=== PATIENT | male | born 1945 | race Caucasian/White ===

== ENCOUNTER 2016-05-06 13:27 | Inpatient (IN) | payer MEDICARE, BC ==
[2016-05-06] MEDS ORDERED: HOME MEDICATION LIST NEEDED 1 EA EACH MC ONE (13:32)
[2016-05-06] MEDS ORDERED: ALBUTEROL 0.083% 2.5 MG/3 ML VIAL.NEB INHALATION PRN (13:42)
[2016-05-06] MEDS ORDERED: ENOXAPARIN SODIUM 100 MG/ML SYR SQ SCH (14:00)
[2016-05-06] MEDS: ENOXAPARIN SODIUM 60 MG/0.6 ML SYR SUBCUT SCH (15:51)
[2016-05-06 17:16] LABS: INR 1.2
[2016-05-06] MEDS: NORMAL SALINE 1,000 ML IV SCH (18:17)
--- NOTE | 2016-05-06 19:49 | HISTORY & PHYSICAL ---
DATE OF ADMISSION: 05/06/16 ATTENDING PHYSICIAN: Flavio Payton MD CHIEF COMPLAINT: Short of breath with activity. HISTORY OF PRESENT ILLNESS: The patient is a 71-year-old male with a history of pulmonary embolism a few years ago and also a more recent diagnosis of seasonal asthma in association with allergies. He states that he was in his usual state of health until about a month ago when he started to notice some increased swelling in his left lower extremity at the level of his ankle without any pain or redness or warmth. About 2 weeks ago, he noticed increasing dyspnea on exertion even with fairly simply activities such as walking up a gentle hill or a flight of stairs, much more than his baseline. He has not had any fevers or chills. No recent upper respiratory tract symptoms or cough. He denies any hemoptysis. He has not had any chest pain or palpitations. He has had mild tubular orthopnea but no paroxysmal nocturnal dyspnea. As above, he has had some mild lower extremity edema on the left ankle more than the right. In association with his episodes of shortness of breath, he has not had any lightheadedness, nausea, vomiting, diaphoresis or palpitations. He has not had any presyncope or syncope. With regard to his prior history of pulmonary embolism, this was a few years ago , and was in association with prior knee surgery and airplane flight a prolonged car trip with immobilization. With that being said, genetic evaluation at that time showed evidence of heterozygosity for a Factor V Leiden and also for Factor XI mutations. He was anticoagulate with Xarelto for a period of time thereafter but ultimately was seen by Hematology here in the [facility] area and anticoagulation was stopped. In terms of recent risks, he travels frequently, and has had some periods of travel related immobilization, but he did not recall any specific timing with regard to his left leg symptoms or his shortness of breath. He did have surgery on his shoulder in November. No recent lower extremity trauma or surgery. The patient was seen by me in clinic by the above, and admitted to the treatment now of pulmonary embolism. PAST MEDICAL HISTORY 1. Bilateral shoulder pain, status post multiple surgeries for rotator cuff. 2. Basal cell carcinoma involving shoulder, neck and face. 3. Benign positional vertigo in 2015. 4. Asthma with associated bronchitis identified in early 2014 by pulmonary function test. 5. Cataract bilaterally. 6. Elevated CRP of unclear significance. 7. Dry eye bilaterally. 8. Dyslipidemia. 9. Factor V Leiden carrier. 10. Gastroesophageal reflux disease. 11. Hypertension. 12. Hyperglycemia with 1 fasting blood sugar at 133. 13. 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 14. Obesity. 15. History of orchitis and epididymitis in 2013. 16. Posterior vitreous attachment bilateral eyes. 17. History of prostate cancer 2002. 18. Pulmonary embolism as previously described. 19. Seasonal rhinitis. 20. Recurrent sinusitis. 21. Tenosynovitis of the left foot. PAST SURGICAL HISTORY 1. Knee replacement on the left in 2011 and on the right in 2012. 2. Prostatectomy in 2002. 3. Right quadriceps plasty/quadriceps repair in 06/2012. 4. Right rotator cuff surgery in 2007 and on the left side in 2010. 5. Reverse shoulder arthroplasty left shoulder in 12/2015. ALLERGIES: Tylenol which results in lip swelling. MEDICATIONS Lee Ann 180 mg p.o. daily. Amlodipine 10 mg p.o. daily. Aspirin 325 mg p.o. daily. Cephalexin 500 mg p.o. daily. Cialis 5 mg p.o. daily. Magnesium 500 mg p.o. every few days. Pantoprazole 40 mg p.o. daily as needed. Valsartan/Hydrochlorothiazide 160/4.5 mg p.o. daily. SOCIAL HISTORY: Former smoker but quit in 1972. Occasional alcohol use perhaps 2 servings once a week. No illicit drug use. Retired. Previously worked in the [employer] industry with [employer] and [employer] at [facility]. FAMILY HISTORY: Significant for hypertension in his father. Hypothyroidism in his father. Mother with coronary artery disease in her late 70s and at age 90. No family history of clotting diathesis. REVIEW OF SYSTEMS: Pertinent positives and negatives as above. Remainder negative. PHYSICAL EXAMINATION VITAL SIGNS: Temperature of 97.9, blood pressure 136/90, pulse 75, respiratory rate 18. Saturating 93% on room air at rest and 87-89% with ambulation. GENERAL: Obese male. In no acute distress although mildly dyspneic with ambulation. No use of accessory muscles. Talking in full sentences. HEENT: Normocephalic, atraumatic. Sinuses are nontender. Pupils equal, round and reactive to light. Oropharynx is clear. NECK: Supple without lymphadenopathy or masses. CHEST: Decreased breath sounds with mild increase in expiratory phase. No rales. No wheezes. No rhonchi. No change in tactile fremitus. No chest wall tenderness. CARDIAC: Distant. Regular rate and rhythm. Did not hear an S3 or S4. Has no JVD at 90 degrees. Has trace bilateral ankle edema, left greater than right. ABDOMEN: Positive bowel sounds. Soft, nontender, nondistended. No hepatosplenomegaly. BACK: No costovertebral angle tenderness. EXTREMITIES: No cyanosis or clubbing. Calves are nontender. No cords. Negative Homans sign. SKIN: No rashes. LYMPH: No cervical or supraclavicular lymphadenopathy. NEUROLOGIC: Patient alert and oriented x4. Facial expressions are symmetric. Light touch was not tested. He is moving all 4 extremities equally. LABORATORY STUDIES: CBC showing a white blood cell count of 5.7 with hematocrit of 52.6 and platelets of 163 with 76% neutrophils. Basic metabolic panel unremarkable other than glucose elevated at 156. His creatinine is 0.9. Hepatic panel is negative. BNP is 30. Cardiac enzymes including troponin, CPK, CPK-MB are all negative. D-Dimer is elevated at 1,018. EKG: Normal sinus rhythm with a partial right bundle branch block and no acute ischemic changes. IMAGING: Chest x-ray with no evidence of acute process such as infiltrate, pleural effusion, pneumothorax. Ultrasound of the lower extremity edema, negative for deep vein thrombosis. CT angiogram of the chest, positive for multiple bilateral pulmonary emboli with evidence of mild ventricular strain. No saddle embolus. Moderate hiatal hernia. Faint haziness in the mid left upper lobe consistent with possible focal area of pneumonitis/pneumonia. ASSESSMENT AND PLAN 1. Pulmonary embolus, multiple, bilateral, with evidence mild possible right sided strain by CT scan: However, no significant evidence of clinical decompensation and he is hemodynamically stable and saturating well on room air at rest with only mild hypoxemia with ambulation. He does require hospitalization. We discussed hospitalization here versus a larger facility, and he felt comfortable with hospitalization at [facility] and I believe this is reasonable. Echocardiogram has been ordered. Lovenox has been ordered. He is asking about possible transition to Xarelto, and this would be reasonable considering this worked well for him in the past and was well tolerated. Will follow on telemetry. Oxygen as needed. Albuterol as needed. Bathroom privileges with assistance only initially to try to minimize any potential for further clot traveling from lower extremities to his lungs. With that being said, prior ultrasound of his lower extremity edema, which is the more involved side symptomatically, is negative for evidence of current deep vein thrombosis presence. Without fever or productive cough, will hold off on antibiotics at this time. Albuterol as needed. Considering this significant second event, he will likely need lifelong anticoagulation. Anticoagulation will be undertaken in the hospital. 2. Clotting diathesis: As previously documented, patient heterozygous for Factor V Leiden mutation and also Factor XI mutation, and now, second clotting event as above. 3. Asthma, moderate, intermittent: With evidence of mild exacerbation in association with the above. At this time, without more significant airway reactivity, will hold off systemic steroids. No indication for antibiotics. Bronchodilators as needed. Of note, he did have spirometry done in our office as part of his initial workup. This did show evidence of a moderate restrictive pattern which may be worth re-evaluating at some point once he is more stable. Presumably, this is due to decreased compliance in association with his multiple pulmonary emboli. Spirometry did not show evidence of significant change in FEV1/FVC ratio, although he may have some inflammation involving his smaller airways. Follow clinically in this regard. 4. Hypertension: Blood pressure mildly elevated. Will continue on his usual medications and follow closely in the setting of the above. 5. Hypercholesteremia: He does not appear to be on therapy for this, and this can be managed in the outpatient setting. 6. Hyperglycemia: With a history of 1 fasting glucose above 126. His glucose level today was elevated but this was in the nonfasting state and was not above 200. Will follow clinically while in the hospital. 7. History of prostate cancer. History of prostatectomy. Will check PSA most recently done in 10/2015 and was undetectable, but will recheck now. 8. Cancer screening: Prostate cancer issues as above. He had a screening colonoscopy on 04/2014 showing colon polyps but no evidence of cancer. 9. Deep vein thrombosis prophylaxis: Patient will be fully anticoagulated initially with Lovenox as above. 10. Vaccine status: Most recent Tdap was in 11/2011. Received Pneumovax in 2013. Would ultimately be a candidate for Prevnar as well. He did receive a flu vaccine in 01/2016. 11. COR status: Patient is a full COR, full tube. Copies: Artur Hodges MD; Lucius Jules MD [facility]
[2016-05-07] MEDS: NORMAL SALINE 1,000 ML IV SCH ×3 (02:32→18:53)
[2016-05-07] MEDS: ENOXAPARIN SODIUM 60 MG/0.6 ML SYR SUBCUT SCH (02:36)
[2016-05-07 06:00] LABS: BLOOD UREA NITROGEN 11 mg/dL (9-20); CALCIUM 8.9 mg/dL (8.4-10.2); CHLORIDE 106 mmol/L (98-107); CREATININE 0.9 mg/dL (0.7-1.3); EST GLOMERULAR FILTRATION RATE > 60 mL/min; GLUCOSE 135 mg/dL (70-100); POTASSIUM 3.6 mmol/L (3.5-5.1); SODIUM 140 mmol/L (137-145)
[2016-05-07 06:44] LABS: HEMOGLOBIN 14.5 g/dL (14.0-18.0); RED BLOOD COUNT 5.23 X 10^6uL (4.20-6.10); WHITE BLOOD COUNT 4.7 X 10^3uL (3.9-10.7)
[2016-05-07 06:45] LABS: BAND% (Manual) 1 % (0.0-1.0); HEMATOCRIT 46.4 % (42.0-54.0); LYMPHOCYTE % (Manual) 20 % (20.0-40.0); MEAN CORPUS. HGB CONCENTRATION 31.3 g/dL (32.0-36.0); MEAN CORPUSCULAR HEMOGLOBIN 27.8 pg (29.0-35.0); MONOCYTE % (Manual) 4 % (2.0-10.0); NEUTROPHIL % (Manual) 50 % (54.0-75.0); PLATELET COUNT 114 X 10^3uL (130-440)
[2016-05-07 06:46] LABS: EOSINOPHIL % (Manual) 9 % (0.0-6.0); PLATELET ESTIMATE ADEQUATE
[2016-05-07 06:48] LABS: PSA DIAGNOSTIC < 0.06 ng/mL (<4.00)
[2016-05-07] MEDS: amLODIPine BESYLATE 5 MG TABLET PO SCH (08:54)
--- NOTE | 2016-05-07 08:54 | PROGRESS NOTE: IM APSO ---
Assessment and Plan - Date of Encounter Date of Encounter: 05/07/16 (1) Recurrent pulmonary embolism Status: Acute Assessment and plan: likely multifactorial with genetics and chronic inflammation, reviewed Virchows triad and negative PSA w/ h/o prostate cancer. Cscope 2015 w/ polyps but no cancer. Resume Xarelto, stop lovenox, assess for need of oxygen Current Visit: Yes (2) Elevated C-reactive protein (CRP) Status: Chronic Assessment and plan: really to likely chronic infection, resume Kefles (suppressive not reordered on admit) Current Visit: Yes (3) Infected prosthetic knee joint Status: Chronic Current Visit: Yes (4) Hypertension Status: Chronic Current Visit: Yes (5) Impaired glucose metabolism Status: Chronic Current Visit: Yes (6) Obstructive lung disease Status: Chronic Current Visit: Yes - Time Spent With Patient Total time spent with greater than 50% in coordination of care (as documented) at patient's floor/unit and/or counseling patient: Greater than 35 minutes IM: PN Subjective General: pain (headache), no fever, no chills Cardiovascular: no chest pain, no chest pressure, no palpitations, no dizziness Respiratory: SOB (with exertion and notes pulse ox dips to 85% with minimal exertion), other (Prior PE's with travel, has factor 11 and heterozygous for factor v leiden. travel to [place] in Fall then shoulder surgery and noted gradually increasing cyspnea after this but last week or so swelling and worsening dyspnea. CT with multiple PE's and Echo without right heart strain. Reviewed riska nd recommend indefinite AC as well likely to need oxygen short term. He wishes second opinion with [facility] which seems reasonable. Load withXarelto and if needs O2 tomorrow then arrange home O2), no cough Gastrointestinal: no abdominal pain, no bloating, no nausea, no vomiting, no constipation Musculoskeletal: swelling (left ankle) IM: PN Objective Exam - I&O/Vital Signs I&O: Intake & Output 05/06/16 05/07/16 05/07/16 21:59 05:59 13:59 Intake Total 1464 Output Total 700 Balance 764 Weight 113.398 kg Intake: IV 1024 Left Hand 1024 Oral 440 Output: Urine 700 Other: Urine Appearance Clear Clear Urine Color Yellow Yellow Stool Size Small Stool Characteristics Soft Formed Formed Brown Brown Voiding Method Toilet Toilet # Voids 2 # Bowel Movements 1 Vital Signs: Last Vital Signs Temp 36.4 C 05/07/16 06:20 Pulse 64 05/07/16 06:20 Resp 16 05/07/16 06:20 BP 131/84 05/07/16 06:20 Pulse Ox 95 05/07/16 06:20 Oxygen Flow Rate 2 Oxygen Delivery Method Nasal Cannula - Constitutional General appearance: Present: obese - Head Head exam: Present: atraumatic - ENT ENT exam: Present: mucous membranes moist - Neck Neck exam: Present: full ROM. Absent: lymphadenopathy, thyromegaly - Respiratory Respiratory exam: Present: CTAB. Absent: accessory muscle use - Cardiovascular Cardiovascular exam: Present: RRR - GI/Abdominal GI/Abdominal exam: Present: normal bowel sounds, soft. Absent: tenderness - Rectal Rectal exam: Present: deferred - Extremities Exam Extremities exam: Present: edema (left trace at ankle). Absent: calf tenderness - Allied Health Notes Allied health notes reviewed: nursing - Lab Labs: Laboratory Last Values WBC 4.7 X 10^3uL (3.9-10.7) 05/07/16 05:25 RBC 5.23 X 10^6uL (4.20-6.10) 05/07/16 05:25 Hgb 14.5 g/dL (14.0-18.0) 05/07/16 05:25 Hct 46.4 % (42.0-54.0) 05/07/16 05:25 MCV 89.0 fL (80.0-100.0) D 05/07/16 05:25 MCH 27.8 pg (29.0-35.0) L 05/07/16 05:25 MCHC 31.3 g/dL (32.0-36.0) L 05/07/16 05:25 RDW Not Reportable 05/07/16 05:25 Plt Count 114 X 10^3uL (130-440) L 05/07/16 05:25 MPV Not Reportable 05/07/16 05:25 Total Counted 100 05/07/16 05:25 Neutrophils % Cancelled 05/07/16 05:25 Neutrophils % (Manual) 50 % (54.0-75.0) L 05/07/16 05:25 Band Neuts % (Manual) 1 % (0.0-1.0) 05/07/16 05:25 Lymphocytes % Cancelled 05/07/16 05:25 Lymphocytes % (Manual) 20 % (20.0-40.0) 05/07/16 05:25 Atypical Lymphs % (Man) 16 % 05/07/16 05:25 Monocytes % (Manual) 4 % (2.0-10.0) 05/07/16 05:25 Eosinophils % Cancelled 05/07/16 05:25 Eosinophils % (Manual) 9 % (0.0-6.0) H 05/07/16 05:25 Basophils % Cancelled 05/07/16 05:25 Neutrophils # Cancelled 05/07/16 05:25 Lymphocytes # Cancelled 05/07/16 05:25 Monocytes Cancelled 05/07/16 05:25 Monocytes # Cancelled 05/07/16 05:25 Eosinophils # Cancelled 05/07/16 05:25 Basophils # Cancelled 05/07/16 05:25 Platelet Estimate Adequate 05/07/16 05:25 Poikilocytosis 10-19% of cells 05/07/16 05:25 Microcytosis 10-19% of cells 05/07/16 05:25 PT 15.7 sec (13.0-16.6) 05/06/16 11:07 INR 1.2 05/06/16 11:07 PTT 29 sec (24-38) 05/06/16 11:07 Sodium 140 mmol/L (137-145) 05/07/16 05:25 Potassium 3.6 mmol/L (3.5-5.1) 05/07/16 05:25 Chloride 106 mmol/L (98-107) 05/07/16 05:25 Carbon Dioxide 25 mmol/L (22-30) 05/07/16 05:25 BUN 11 mg/dL (9-20) 05/07/16 05:25 Creatinine 0.9 mg/dL (0.7-1.3) 05/07/16 05:25 GFR Calculation > 60 mL/min 05/07/16 05:25 Glucose 135 mg/dL (70-100) H 05/07/16 05:25 Calcium 8.9 mg/dL (8.4-10.2) 05/07/16 05:25 Total PSA < 0.06 ng/mL (<4.00) 05/07/16 05:25 Quality Questions - VTE Prophylaxis Assessment VTE Present on Admission?: Yes Patient at risk for venous thromboembolism?: Yes VTE Risk Level: High Risk VTE Medical Contraindication: Treatment not indicated (3) Infected prosthetic knee joint Qualifiers: Encounter type: sequela Qualified Code(s): T84.59XS - Infection and inflammatory reaction due to other internal joint prosthesis, sequela; Z96.659 - Presence of unspecified artificial knee joint
[2016-05-07] MEDS: HYDROCHLOROTHIAZIDE 25 MG TABLET PO SCH (08:55)
[2016-05-07] MEDS: FEXOFENADINE HCL 180 MG TABLET PO SCH (08:56)
[2016-05-07] MEDS: VALSARTAN 80 MG TABLET PO SCH (08:57)
[2016-05-07] MEDS ORDERED: NON-FORMULARY MEDICATION (Tadalafil [Cialis] 5 MG) PO SCH ×2 (09:00)
[2016-05-07] MEDS ORDERED: VALSARTAN PO SCH (09:00)
[2016-05-07] MEDS ORDERED: NON-FORMULARY MEDICATION (Amlodipine Besylate [Norvasc] 10 MG) PO SCH (09:00)
[2016-05-07] MEDS ORDERED: HYDROCHLOROTHIAZIDE PO SCH (09:00)
[2016-05-07] MEDS ORDERED: CEPHALEXIN MONOHYDRATE 250 MG CAPSULE PO SCH ×2 (09:00→21:00)
[2016-05-07] MEDS ORDERED: [UNRECOGNIZED DRUG - OTHER] PO SCH (09:00)
[2016-05-07] MEDS ORDERED: CEPHALEXIN 500 MG PO SCH (09:00)
[2016-05-07] MEDS: PROBIOTIC 1 CAP CAPSULE PO SCH (10:21)
[2016-05-07] MEDS: RIVAROXABAN 10 MG TABLET PO SCH (18:11)
[2016-05-07] MEDS ORDERED: traMADol HCL 50 MG TABLET PO PRN (18:47)
[2016-05-07] MEDS ORDERED: VALSARTAN 80 MG TABLET PO ONE (20:50)
[2016-05-08] MEDS: NORMAL SALINE 1,000 ML IV SCH (04:22)
[2016-05-08 05:38] LABS: BASOPHIL# 0.2 X 10^3uL (0.0-0.1); BASOPHILS 4.5 % (0.0-2.0); EOSINOPHILS 6.3 % (0.0-6.0); EOSINOPHILS# 0.3 X 10^3uL (0.0-0.4); HEMATOCRIT 49.6 % (42.0-54.0); HEMOGLOBIN 16.5 g/dL (14.0-18.0); LYMPHOCYTES 16.9 % (20.0-40.0); LYMPHOCYTES# 0.8 X 10^3uL (0.8-3.8); MEAN CELL VOLUME 82.4 fL (80.0-100.0); MEAN CORPUS. HGB CONCENTRATION 33.3 g/dL (32.0-36.0); MEAN CORPUSCULAR HEMOGLOBIN 27.4 pg (29.0-35.0); MEAN PLATELET VOLUME 8.4 fL (7.4-10.4); MONOCYTES 12.6 % (2.0-10.0); MONOCYTES# 0.6 X 10^3uL (0.2-1.0); NEUTROPHILS 59.7 % (54.0-75.0); RED BLOOD COUNT 6.02 X 10^6uL (4.20-6.10); WHITE BLOOD COUNT 4.9 X 10^3uL (3.9-10.7)
[2016-05-08] MEDS ORDERED: SODIUM CHLORIDE NASAL SPRAY 44 SPRAY/44 ML BTL NASAL PRN (05:43)
[2016-05-08 06:21] VITALS: BP 143/88; PULSE 71; RESP 15; TEMP 97.5; O2SAT 91
[2016-05-08] MEDS: RIVAROXABAN 10 MG TABLET PO SCH (08:12)
[2016-05-08] MEDS: FEXOFENADINE HCL 180 MG TABLET PO SCH (08:12)
[2016-05-08] MEDS: HYDROCHLOROTHIAZIDE 25 MG TABLET PO SCH (08:13)
[2016-05-08] MEDS: PROBIOTIC 1 CAP CAPSULE PO SCH (08:13)
[2016-05-08] MEDS: VALSARTAN 80 MG TABLET PO SCH (08:13)
[2016-05-08] MEDS: amLODIPine BESYLATE 5 MG TABLET PO SCH (08:13)
--- NOTE | 2016-05-08 08:39 | PROGRESS NOTE: IM APSO ---
Assessment and Plan - Date of Encounter Date of Encounter: 05/08/16 (1) Recurrent pulmonary embolism Status: Acute Assessment and plan: likely multifactorial with genetics and chronic inflammation, reviewed Virchows triad and negative PSA w/ h/o prostate cancer. Cscope 2015 w/ polyps but no cancer. Resumed Xarelto, stopped lovenox, assess for need of oxygen (doesn't need) Current Visit: Yes (2) Elevated C-reactive protein (CRP) Status: Chronic Assessment and plan: likely related to chronic infection, resumed supressive Keflex Current Visit: Yes (3) Infected prosthetic knee joint Status: Chronic Current Visit: Yes (4) Hypertension Status: Chronic Assessment and plan: controlled at home on valsartan/norvasc/hctz, may need to titrate but will check BP at home in mornings and address at f/u. Current Visit: Yes (5) Impaired glucose metabolism Status: Chronic Current Visit: Yes (6) Obstructive lung disease Status: Chronic Current Visit: Yes - Time Spent With Patient Total time spent with greater than 50% in coordination of care (as documented) at patient's floor/unit and/or counseling patient: 25 - 35 minutes IM: PN Subjective General: no pain, no fever, no chills Cardiovascular: no chest pain, no chest pressure, no palpitations, no dizziness Respiratory: SOB (notes pulse ox dips to 86% with more vigorous exertion), no cough Gastrointestinal: no abdominal pain, no bloating, no nausea, no vomiting, no constipation Musculoskeletal: swelling (left ankle) IM: PN Objective Exam - I&O/Vital Signs I&O: Intake & Output 05/07/16 05/08/16 05/08/16 21:59 05:59 13:59 Intake Total 2900 3732 Output Total 2800 2300 Balance 100 1432 Intake: IV 1400 2692 Left Hand 1400 2692 Oral 1500 1040 Output: Urine 2800 2300 Other: Urine Appearance Clear Clear Urine Color Yellow Yellow Stool Size Small Stool Characteristics Formed Brown Voiding Method Toilet Toilet # Voids 7 # Bowel Movements 2 0 Vital Signs: Last Vital Signs Temp 36.4 C L 05/08/16 06:20 Pulse 71 05/08/16 06:20 Resp 15 05/08/16 06:20 BP 143/88 05/08/16 06:20 Pulse Ox 91 05/08/16 06:20 Oxygen Flow Rate 1 Oxygen Delivery Method Room Air - Constitutional General appearance: Present: obese - Head Head exam: Present: atraumatic - ENT ENT exam: Present: mucous membranes moist - Neck Neck exam: Present: full ROM. Absent: lymphadenopathy, thyromegaly - Respiratory Respiratory exam: Present: CTAB. Absent: accessory muscle use - Cardiovascular Cardiovascular exam: Present: RRR - GI/Abdominal GI/Abdominal exam: Present: normal bowel sounds, soft. Absent: tenderness - Rectal Rectal exam: Present: deferred - Extremities Exam Extremities exam: Absent: calf tenderness - Allied Health Notes Allied health notes reviewed: nursing - Lab Labs: Laboratory Last Values WBC 4.9 X 10^3uL (3.9-10.7) 05/08/16 05:25 RBC 6.02 X 10^6uL (4.20-6.10) 05/08/16 05:25 Hgb 16.5 g/dL (14.0-18.0) 05/08/16 05:25 Hct 49.6 % (42.0-54.0) 05/08/16 05:25 MCV 82.4 fL (80.0-100.0) D 05/08/16 05:25 MCH 27.4 pg (29.0-35.0) L 05/08/16 05:25 MCHC 33.3 g/dL (32.0-36.0) 05/08/16 05:25 RDW 14.0 % (11.5-14.5) 05/08/16 05:25 Plt Count 165 X 10^3uL (130-440) 05/08/16 05:25 MPV 8.4 fL (7.4-10.4) 05/08/16 05:25 Total Counted 100 05/07/16 05:25 Neutrophils % 59.7 % (54.0-75.0) 05/08/16 05:25 Neutrophils % (Manual) 50 % (54.0-75.0) L 05/07/16 05:25 Band Neuts % (Manual) 1 % (0.0-1.0) 05/07/16 05:25 Lymphocytes % 16.9 % (20.0-40.0) L 05/08/16 05:25 Lymphocytes % (Manual) 20 % (20.0-40.0) 05/07/16 05:25 Atypical Lymphs % (Man) 16 % 05/07/16 05:25 Monocytes % (Manual) 4 % (2.0-10.0) 05/07/16 05:25 Eosinophils % 6.3 % (0.0-6.0) H 05/08/16 05:25 Eosinophils % (Manual) 9 % (0.0-6.0) H 05/07/16 05:25 Basophils % 4.5 % (0.0-2.0) H 05/08/16 05:25 Neutrophils # 3.0 X 10^3uL (2.6-6.7) 05/08/16 05:25 Lymphocytes # 0.8 X 10^3uL (0.8-3.8) 05/08/16 05:25 Monocytes 12.6 % (2.0-10.0) H 05/08/16 05:25 Monocytes # 0.6 X 10^3uL (0.2-1.0) 05/08/16 05:25 Eosinophils # 0.3 X 10^3uL (0.0-0.4) 05/08/16 05:25 Basophils # 0.2 X 10^3uL (0.0-0.1) H 05/08/16 05:25 Platelet Estimate Adequate 05/07/16 05:25 Poikilocytosis 10-19% of cells 05/07/16 05:25 Microcytosis 10-19% of cells 05/07/16 05:25 PT 15.7 sec (13.0-16.6) 05/06/16 11:07 INR 1.2 05/06/16 11:07 PTT 29 sec (24-38) 05/06/16 11:07 Sodium 140 mmol/L (137-145) 05/07/16 05:25 Potassium 3.6 mmol/L (3.5-5.1) 05/07/16 05:25 Chloride 106 mmol/L (98-107) 05/07/16 05:25 Carbon Dioxide 25 mmol/L (22-30) 05/07/16 05:25 BUN 11 mg/dL (9-20) 05/07/16 05:25 Creatinine 0.9 mg/dL (0.7-1.3) 05/07/16 05:25 GFR Calculation > 60 mL/min 05/07/16 05:25 Glucose 135 mg/dL (70-100) H 05/07/16 05:25 Calcium 8.9 mg/dL (8.4-10.2) 05/07/16 05:25 Total PSA < 0.06 ng/mL (<4.00) 05/07/16 05:25 (3) Infected prosthetic knee joint Qualifiers: Encounter type: sequela Qualified Code(s): T84.59XS - Infection and inflammatory reaction due to other internal joint prosthesis, sequela; Z96.659 - Presence of unspecified artificial knee joint
--- NOTE | 2016-05-08 08:45 | DC SUMMARY: IM Note ---
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 Qualifiers: Encounter type: sequela Qualified Code(s): T84.59XS - Infection and inflammatory reaction due to other internal joint prosthesis, sequela; Z96.659 - Presence of unspecified artificial knee joint (4) Hypertension Status: Chronic (5) Impaired glucose metabolism Status: Chronic (6) Obstructive lung disease Status: Chronic - Time Spent with Patient Total time spent providing and/or coordinating discharge services: Discharge - Patient/Caregiver Discharge Instructions Activity Level: as tolerated, avoid high risk activities for head injury Diet: cardiac prudent Follow up: XI NEGRO MD [Primary Care Provider] - 7 Days Overall discharge status: patient is progressing back to baseline Home Medications: aspirin EC [Aspirin EC*] 81 mg PO DAILY #100 tablet traMADol HCL [Ultram*] 50 mg PO Q6H PRN #30 tablet PRN Reason: Pain, Moderate Able To Take Po Disposition: HOME, SELF-CARE Discharge Summary Data - Medication History Medication History: Home Medications Cephalexin [Keflex] 500 mg PO DAILY 05/06/16 Fexofenadine HCl [[place] Allergy] 180 mg PO DAILY 05/06/16 Tadalafil [Cialis] 5 mg PO DAILY 05/06/16 Valsartan/Hydrochlorothiazide [Diovan Hct 160-12.5 mg Tab] 1 tab PO DAILY amLODIPine BESYLATE [Norvasc] 10 mg PO DAILY 05/06/16 aspirin EC [Aspirin EC*] 325 mg PO DAILY 05/06/16 Inpatient Medications 05/06/16 13:42 Albuterol 0.083% [Ventolin 0.083% Neb Soln] 2.5 mg INHALATION QIDINH PRN 05/06/16 14:00 Normal Saline [Sodium Chloride 0.9% 1000 ml] 1,000 ml IV CONT 05/07/16 09:00 Fexofenadine HCl [Lee Ann] 180 mg PO DAILY Hydrochlorothiazide [Hydrodiuril] 12.5 mg PO DAILY Probiotic [Erin-Q Capsule] 1 cap PO DAILY Tadalafil [Cialis] 5 mg PO DAILY Valsartan [Diovan] 160 mg PO DAILY amLODIPine BESYLATE [Norvasc] 10 mg PO DAILY 05/07/16 18:00 Rivaroxaban [Xarelto] 15 mg PO WITH BRKFST AND DINN 05/07/16 18:47 traMADol HCL [Ultram] 50 mg PO Q6H PRN 05/08/16 05:43 Sodium Chloride Nasal [place] [Scurry Nasal [place]] 0 spray NASAL Q1H PRN 05/08/16 09:00 Cephalexin Monohydrate [Keflex] 500 mg PO DAILY Procedures and tests throughout hospitalization: Completed Lab Orders 05/06/16 11:07 PARTIAL THROMBOPLASTIN TIME [HEM] Routine PROTIME/INR [HEM] Routine 05/07/16 05:25 BASIC METABOLIC PANEL [CHEM] AMDRAW CBC W/ MANUAL DIFFERENTIAL [HEM] Stat PSA DIAGNOSTIC [CHEM] Routine 05/08/16 05:25 CBC AUTO DIF, MDIF/RMOR IF IND [HEM] AMDRAW Completed Microbiology Orders 05/06/16 21:30 OCCULT BLOOD (1-3 SAMPLES) [RM] 05/07/16 08:00 OCCULT BLOOD (1-3 SAMPLES) [RM] 05/07/16 12:20 OCCULT BLOOD (1-3 SAMPLES) [RM] Pending Orders 05/06/16 13:32 Admit: Inpatient Routine Activity: BRP w/ Assist Only . Assess pulse oximetry ROOM AIR (DAILY) Resuscitation Status Routine Teach: Lovenox Education . Telemetry monitoring CONTINUOUS TELE Vital Signs ROUTINE VITALS (Q4H) Echocardiogram [CARDIO] Routine 05/06/16 13:42 Albuterol 0.083% [Ventolin 0.083% Neb Soln] 2.5 mg INHALATION QIDINH PRN 05/06/16 14:00 Normal Saline [Sodium Chloride 0.9% 1000 ml] 1,000 ml IV CONT 05/06/16 Lunch Regular [DIET] 05/07/16 09:00 Fexofenadine HCl [Lee Ann] 180 mg PO DAILY Hydrochlorothiazide [Hydrodiuril] 12.5 mg PO DAILY Probiotic [Erin-Q Capsule] 1 cap PO DAILY Tadalafil [Cialis] 5 mg PO DAILY Valsartan [Diovan] 160 mg PO DAILY amLODIPine BESYLATE [Norvasc] 10 mg PO DAILY 05/07/16 09:03 Pulse-ox [Assess pulse oximetry] Once 05/07/16 18:00 Rivaroxaban [Xarelto] 15 mg PO WITH BRKFST AND DINN 05/07/16 18:47 traMADol HCL [Ultram] 50 mg PO Q6H PRN 05/08/16 05:43 Sodium Chloride Nasal [place] [Scurry Nasal [place]] 0 spray NASAL Q1H PRN 05/08/16 09:00 Cephalexin Monohydrate [Keflex] 500 mg PO DAILY Labs on day of discharge: Labs from last 24 hours 05/08/16 05:25 WBC 4.9 RBC 6.02 Hgb 16.5 Hct 49.6 MCV 82.4 D MCH 27.4 L MCHC 33.3 RDW 14.0 Plt Count 165 MPV 8.4 Neutrophils % 59.7 Lymphocytes % 16.9 L Eosinophils % 6.3 H Basophils % 4.5 H Neutrophils # 3.0 Lymphocytes # 0.8 Monocytes 12.6 H Monocytes # 0.6 Eosinophils # 0.3 Basophils # 0.2 H - Impressions 71 yo man with HTN/IGT/chronic infection with elevated CRP, FVL and now recurrent PE. Not require O2. Echo without pulm HTN, CT chest multiple PE. Resumed Xarelto. Heme consult sent. Will need f/u in 1-2 weeks and readdress oxygen/BP at that time. IM: Discharge Physical Exam - I&O/Vital Signs I&O: Intake & Output 05/07/16 05/08/16 05/08/16 21:59 05:59 13:59 Intake Total 2900 3732 Output Total 2800 2300 Balance 100 1432 Intake: IV 1400 2692 Left Hand 1400 2692 Oral 1500 1040 Output: Urine 2800 2300 Other: Urine Appearance Clear Clear Urine Color Yellow Yellow Stool Size Small Stool Characteristics Formed Brown Voiding Method Toilet Toilet # Voids 7 # Bowel Movements 2 0 Vital Signs: Last Vital Signs Temp 36.4 C L 05/08/16 06:20 Pulse 71 05/08/16 06:20 Resp 15 05/08/16 06:20 BP 143/88 05/08/16 06:20 Pulse Ox 91 05/08/16 06:20 Oxygen Flow Rate 1 Oxygen Delivery Method Room Air - Constitutional General appearance: Present: obese - Head Head exam: Present: atraumatic - ENT ENT exam: Present: mucous membranes moist - Neck Neck exam: Present: full ROM. Absent: lymphadenopathy, thyromegaly - Respiratory Respiratory exam: Present: CTAB. Absent: accessory muscle use - Cardiovascular Cardiovascular exam: Present: RRR - GI/Abdominal GI/Abdominal exam: Present: normal bowel sounds, soft. Absent: tenderness - Rectal Rectal exam: Present: deferred - Extremities Exam Extremities exam: Absent: calf tenderness - Allied Health Notes Allied health notes reviewed: nursing
[2016-05-08] MEDS ORDERED: CEPHALEXIN MONOHYDRATE 250 MG CAPSULE PO SCH (09:00)
== END 2016-05-08 08:45 | disposition home or self-care (01) | DRG 176 ==
LOC: IN 13:27
PROVIDERS: ADMIT Internal Medicine; ATTEND Internal Medicine
DX: I26.99 Other pulmonary embolism without acute cor pulmonale (principal); D68.4 Acquired coagulation factor deficiency; J45.21 Mild intermittent asthma with (acute) exacerbation; Z86.711 Personal history of pulmonary embolism; R09.02 Hypoxemia; E78.5 Hyperlipidemia, unspecified; K21.9 Gastro-esophageal reflux disease without esophagitis; I10 Essential (primary) hypertension; E66.9 Obesity, unspecified; Z85.46 Personal history of malignant neoplasm of prostate; R73.9 Hyperglycemia, unspecified; Z87.898 Personal history of other specified conditions; R79.82 Elevated C-reactive protein (CRP); Z79.899 Other long term (current) drug therapy
CPT/HCPCS: 36415; 80048; 82270; 84153; 85007; 85025; 85027; 85610; 85730; 93005; 93041; 93306; 94667; J1650; J7030

== ENCOUNTER 2016-05-31 09:26 | Emergency (ER) | payer MEDICARE, BC ==
--- NOTE | 2016-05-31 10:26 | ER PHYSICIAN DOCUMENTATION ---
Physician Documentation [facility] Name:Ronald Blackwood Age:71 yrs Sex:Male :1945 Arrival Date:05/31/2016 Time:09:26 Bed4 Private MD:Artur Hodges ED, Tom Disposition: 05/31 10:00 Chart complete. tl1 Disposition: 05/31/16 10:10 Discharged to Home/Self Care. Impression: Phlebitis Leg. - Condition is Good. - Medical Reconciliation form form. - Follow up: Artur Hodges MD; When: 1 - 2 days; Reason: Recheck today's complaints, Continuance of care. - Problem is new. - Symptoms have improved. HPI: 09:39 This 71 yrs old Male presents to ER with complaints of R CALF PAIN. tl1 09:40 He is currently on Xarelto for a prior PE. This AM, on awakening, he noted right tl1 proximal posterolateral calf pain with walking. He cannot think of any injury or unusually strenuous exercise.. He denies CP, hemoptysis or dyspnea. He has not missed any doses of Xarelto. No f/c/s. Historical: - Allergies: ACETAMINOPHEN; - Home Meds: 1. Norvasc Oral 2. Diovan Oral 3. Xarelto oral - PMHx: HYPERTENSION; PE; - PSHx: APPENDECTOMY; ABD tumor (remote past); - Tetanus: < 10 years. - Ebola Screening: : Patient denies exposure to infectious person. Patient denies travel to an Ebola-affected area in the 21 days before illness onset. . - Immunization history: Flu Vaccine < 1 year. - Social history: Smoking status: Patient states was never smoker of tobacco. Patient uses alcohol occasionally. Patient/guardian denies using marijuana. ROS: 09:40 MS/extremity: Positive for pain, Negative for injury or acute deformity, contusion, tl1 decreased range of motion, deformity, ecchymosis, erythema, paresthesias, rash, swelling, warmth. Exam: 09:40 Constitutional: This is a well developed, well nourished patient who is awake, alert, tl1 and in no acute distress. 09:40 Head/Face: Normocephalic, atraumatic. tl1 09:40 Cardiovascular: Rate: normal, Rhythm: regular, Heart sounds: normal. 09:40 Respiratory: the patient does not display signs of respiratory distress, Respirations: normal, Breath sounds: are normal. 09:40 Abdomen/GI: Palpation: abdomen is soft and non-tender. 09:40 Musculoskeletal/extremity: Extremities: grossly normal except: noted in the On the proximal posterolateral right calf is a very small discrete 2 cm diameter area of tenderness with no othe rpalpable or visual abnormality.: 09:40 Skin: Exam negative for acute changes. 09:40 Neuro: Exam negative for acute changes. Vital Signs: 09:42 BP 136 / 87; Pulse 95; Resp 18; Temp 97.5; Pulse Ox 92% on R/A; Pain 2/10; st MDM: 09:37 Patient medically screened. tl1 10:00 Data reviewed: vital signs, nurses notes, and as a result, I will discharge patient. tl1 Counseling: I had a detailed discussion with the patient and/or guardian regarding: the historical points, exam findings, and any diagnostic results supporting the discharge/admit diagnosis, the need for outpatient follow up, to return to the emergency department if symptoms worsen or persist or if there are any questions or concerns that arise at home. Response to treatment: There is no appreciated change of the patient's symptoms at this time, and as a result, I will discharge patient. ED course: His symptoms were improving the entire time he was here. I told him that a recurrent PE or DVT is extremely unlikely to come on while he is taking Xarelto. We do not have doppler u/s available today (Thursday) and I don't think he needs to go [place] to one of the [facility] to get one now. I asked him to f/u with his PCP IN 2 days for consideration of a doppler u/s if his symptoms persist and to return here in the interim for an y further concerns.. Dispensed Medications: No medications were administered Signatures: Evangelina Chung RN RN st Leigh, Tom, MD MD tl1
--- NOTE | 2016-05-31 10:26 | ER NURSING DOCUMENTATION ---
Nurse's Notes [facility] Name:Ronald Blackwood Age:71 yrs Sex:Male :1945 Arrival Date:05/31/2016 Time:09:26 Bed4 Private MD:Artur Hodges Diagnosis:Phlebitis Leg Presentation: 05/31 09:38 Presenting complaint: Patient states: pt developed right calf pain this AM. pt st currently has some PEs and is no xerolto for them. Pt is concerned and wants to rule out a DVT. Transition of care: Home. 09:38 Acuity: JEWEL 4 st 09:38 Method Of Arrival: Private Vehicle st Triage Assessment: 09:41 General: Appears in no apparent distress, Behavior is cooperative. Pain: Complains of st pain in right calf Pain currently is 2 out of 10 on a pain scale. Pain began This AM. Cardiovascular: No deficits noted. Cardiovascular: Edema is absent. Respiratory: No deficits noted. GI: No deficits noted. Musculoskeletal: Swelling absent. Musculoskeletal: Tenderness present in right calf. Historical: - Allergies: ACETAMINOPHEN; - Home Meds: 1. Norvasc Oral 2. Diovan Oral 3. Xarelto oral - PMHx: HYPERTENSION; PE; - PSHx: APPENDECTOMY; ABD tumor (remote past); - Tetanus: < 10 years. - Ebola Screening: : Patient denies exposure to infectious person. Patient denies travel to an Ebola-affected area in the 21 days before illness onset. . - Immunization history: Flu Vaccine < 1 year. - Social history: Smoking status: Patient states was never smoker of tobacco. Patient uses alcohol occasionally. Patient/guardian denies using marijuana. Screenin:42 Infectious Disease Risk None. Abuse screen: Denies threats or abuse. Denies injuries st from another. pt feels safe at home. Nutritional screening: No deficits noted. Vital Signs: 09:42 BP 136 / 87; Pulse 95; Resp 18; Temp 97.5; Pulse Ox 92% on R/A; Pain 2/10; st ED Course: :28 Patient arrived in ED. ama 09:28 Artur Hodges MD is Private Physician. ama 09:37 Konstantin Crabtree MD is Attending Physician. tl1 09:37 Evangelina Chung RN is Primary Nurse. st 09:[address] 09:43 Valuables Rem[address] with patient. st 10:06 Artur Hodges MD is Referral Physician. tl1 Administered Medications: No medications were administered Outcome: 10:10 Discharge ordered by . tl1 10:24 Discharged to home ambulatory. st 10:24 Condition: stable 10:24 Discharge instructions given to patient, Instructed on D/vesna by Dr. Crabtree 10:25 Patient [address] the ED[address] st 04 09:34 Discharge F/U Call: Spoke with: patient. Did your discharge instructions answer all nf of your questions? yes Overall Care on a scale of 1-10 with 10 being the best care, you rate our care as: the rating of 10. Further F/U necessary? None needed Signatures: Evangelina Chung, Desiree Ortiz RN, RN RN nf Averdick, Andrew, Reg Konstantin Mcbride MD MD tl1
== END 2016-05-31 10:25 | disposition home or self-care (01) ==
LOC: ER 09:26
DX: M79.661 Pain in right lower leg (principal); Z79.01 Long term (current) use of anticoagulants; Z86.711 Personal history of pulmonary embolism; I10 Essential (primary) hypertension; Z79.899 Other long term (current) drug therapy
CPT/HCPCS: 99281; 99282